=== PATIENT | male | born 1940 | race Caucasian/White ===

== ENCOUNTER → 2016-05-19 | Outpatient (CLI) | payer OTHER, BC ==
[~2016-05-19] VITALS: Ht 175.3 cm; Wt 85.3 kg
[~2016-05-19] MED LIST: CAFERGOT TABLE1 EACH; CELEBREX 200 M200 MG PO; CORGARD 80MG TA80 M1 PO; FISH OIL 1,001000 M1 PO; HYDROCODON-ACE1 EAC7 PO; LORTAB 5 MG/5001 TA1 PO; MELATONIN5 M1 PO; NADOLOL PO; NORCO 5-325 TA1 EACH PO; NORCO 7.5-3251 EACH PO; NORTRIPTYLINE H50 M3 PO; NORTRIPTYLINE HCL; PRILOSEC 20 MG20 MG PO; STEROID CREAM; TRAMADOL 50 MG50 MG PO; TRAZODONE 150150 M1 PO; VALIUM5 MG PO; VITAMIN D2400 UNIT PO; VITAMIN E400 UNIT PO; WELLBUTRIN 100100 MG PO
--- NOTE | ~2016-05-19 | HPC ---
[facility] [address] [place] [address] PAIN MANAGEMENT CONSULTATION Name: ABUNDIO DAY [facility] #[id number] Admission: 05/19/16 Attend Phys: rEic Haas DO Discharge: Date of : 42 Report #: [id number] THIS REPORT FOR: //name// CC: Jamarcus Haas The patient is a very pleasant 75-year-old gentleman seen in consultation at the request of Dr. Carlos for evaluation of pain, neck, right shoulder and neck. 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 Returns to the pain clinic today noting that symptoms began about 6 months ago, right shoulder, posterior occiput and neck. He has chronic history of migraine headaches, that generally have been well controlled with nadolol and nortriptyline. Notes the current symptoms are continuous and sharp, rates it anywhere from 7-10 on a 0-10 visual analog scale, seem to be exacerbated with head position, specifically turning to the right. Some relief with repositioning his head and lying recumbent. He denies specific myelopathic symptoms. REVIEW OF SYSTEMS: Complete review of systems attached to chart and gone over with the patient. A 75-year-old gentleman, , does not smoke or drink alcohol to excess. History of some chronic renal insufficiency, has elevated creatinine contraindicating use of nonsteroidal anti-inflammatory medication. 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 Two back surgeries in 2004 and 2008, culminating in a fusion. Chronic migraines typically well controlled with nadolol and nortriptyline. 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 Pain impact score averages about 24/70. CURRENT MEDICATIONS: Include bupropion, diazepam, melatonin, nadolol, nortriptyline, omeprazole, tramadol, trazodone. PHYSICAL EXAMINATION: GENERAL: Reveals a 5 feet 9 inches, 180 pounds gentleman, BMI is 27.8 kilograms per meter squared. VITAL SIGNS: Blood pressure is 103/74, pulse wnl and respirations are 18. NEUROLOGIC: Cranial nerves 2-12 are grossly intact. HEENT: Pupils equal and reactive to light and accommodation. Extraocular muscles are intact. He has a little lateral gaze nystagmus. MUSCULOSKELETAL: Cervical range of motion shows positive Lhermitte. Pain going into the right neck and shoulder. Deltoid strength is modestly diminished on the right compared to left. Hand grasp is symmetric. Upper extremity strength is otherwise preserved. Deep tendon reflexes are symmetric. Skin integument is intact. HEART: Regular rhythmical without murmur. LUNGS: Clear to auscultation. [facility] [address] [place] [address] PAIN MANAGEMENT CONSULTATION Name: SHAYABUNDIO W Room #: REG [facility]#: [id number] Admission: 05/19/16 Attend Phys: Eric Haas DO Discharge: Date of : 42 Report #: [id number] EXTREMITIES: Gait is tandem. DIAGNOSTIC STUDIES: MRI of the cervical spine from 02/13/2016 was reviewed with the patient, broad-based disk at C6-C7. Canals down to about 9 mm, moderate left greater than right neural foraminal stenosis, C5-C6 notes canal narrowed to 8 mm with bilateral neural foraminal narrowing. ASSESSMENT: Symptomatic cervical radiculopathy in a gentleman with history of component of cervical spondylosis and chronic migraine history. RECOMMENDATIONS: Discussion with the patient today about therapeutic option. Would like to move forward with cervical epidural injection under fluoroscopy today. If this does not afford adequate relief, we will move forward with C2-C3 cervical facet joint injection under fluoroscopy in consideration for medial branch dorsal rami diagnostic block and/or RFL. Thank you for allowing me to participate in the patient's care. I will keep you abreast of his progress. PROCEDURE: Cervical epidural steroid injection under fluoroscopy. PROCEDURE NOTE: After written and informed consent was obtained including risk of dural puncture, spinal cord trauma, paralysis and increased pain, the patient was taken to the fluoroscopy suite and placed in the prone position, with appropriate abdominal bolstering, neck was flexed, palms under the thighs. Skin was prepped with ChloraPrep. Sterile draping was applied. Skin wheal with 1% Xylocaine was raised. A 22-gauge 3-1/2 inch epidural Tuohy needle was placed via a midline approach at the C7-T1 interspace, advanced under biplanar fluoroscopy using continuous loss of resistance. With appropriate loss of resistance at the expected depth on lateral view, the glass loss of resistance syringe was disconnected. A low volume extension tubing was connected to the needle and a 5 mL syringe. Negative aspiration for cerebrospinal fluid or blood was noted. A 1 mL of Omnipaque was injected which showed spread within the epidural space on biplanar fluoroscopy. This was followed with 80 mg of triamcinolone plus 1 mL of 1.5% preservative Xylocaine. Needle was withdrawn to the interspinous ligament, 0.5 mL of Xylocaine was used to flush the needle. The needle was then completely withdrawn. The area was cleansed. Band-Aid was applied. The patient was allowed to move off the procedure table and ambulated to the recovery room, monitored for an appropriate period of time, discharged in good and stable condition. <ELECTRONICALLY SIGNED> By: Eric Haas DO 05/21/16 [id number] Eric Haas DO /nt
[2016-05-19 12:59] VITALS: BP 103/74
== END | disposition home or self-care (01) ==
LOC: PAIN 07:40
DX: M47.892 Other spondylosis, cervical region (principal); G43.909 Migraine, unspecified, not intractable, without status migrainosus

== ENCOUNTER → 2016-07-11 | Outpatient (CLI) | payer OTHER, BC ==
[~2016-07-11] VITALS: Ht 177.8 cm; Wt 85.4 kg
[~2016-07-11] MED LIST changes: +RIZATRIPTAN10 MG PO
--- NOTE | ~2016-07-11 | HPC ---
[facility] [address] [employer] [place] [address] PAIN MANAGEMENT CONSULTATION Name: ABUNDIO DAY Room #: REG [facility] Satya.#: [id number] Admission: 07/11/16 Attend Phys: Eric Haas DO Discharge: Date of : 41 Report #: [id number] THIS REPORT FOR: //name// CC: Jamarcus Haas The patient is a 75-year-old gentleman, seen in consultation on 05/19/2016, diagnosed with symptomatic cervical radiculopathy, component of cervical spondylosis, given a cervical epidural injection at that time with incremental improvement of baseline pain, the patient notes 50% improvement, but primary pain is in the right neck and posterior occiput. PHYSICAL EXAMINATION: Today, again generally unchanged from last visit. A 75-year-old gentleman, BMI is 27 kg/m2. Vital signs are stable as noted in the EMR. Tender over the cervical facets superior aspect, tenderness over the posterior occiput, cervical range of motion is modestly limited. ASSESSMENT: 1. Symptomatic cervical radiculopathy, radicular symptoms have generally improved epidural injection. 2. Cervical spondylosis by clinical exam today, migraine headaches by history. 3. Symptomatic cervical spondylosis. RECOMMENDATION: 1. Continue range of motion of cervical spine and upper extremities. 2. Continue current medications, tramadol as needed for pain, trazodone at bedtime along with nortriptyline for migraine prophylaxis. 3. Cervical facet injections under fluoroscopy, right C2-C3, C3-C4, C4-C5 today. Follow up in 3-4 weeks for reevaluation and consideration for medial branch dorsal rami diagnostic block and consideration of neurolysis if indicated. PROCEDURE NOTE: Right cervical facets under fluoroscopy times 3. Fluoroscopy time was under 15 seconds. PROCEDURE: After written informed consent was obtained, the patient was taken to the fluoroscopy suite and placed in prone position. After sterile prep and drape, skin wheal with Xylocaine was raised times 3. 26-gauge stylet needles were placed to contact posterior aspect of the right C2-C3, C3-C4, and C4-C5 facet joints in the middle of mid lateral mass. AP and lateral projections showed good needle placement approaching the posterior aspect of each joint. Negative aspiration was accomplished. Approximately 3 mg of Decadron plus 1 mL of 0.5% preservative-free bupivacaine was injected at each needle. All three needles were removed, the area was cleansed, Band-Aids applied. The patient was monitored for an appropriate period of time, discharged in good and stable condition, noting dramatic improvement of his baseline pain, in fact noted pain was absent on discharge. We will have him continue to watch pain score over [address] [address] PAIN MANAGEMENT CONSULTATION Name: ABUNDIO DAY Room #: REG [facility]#: [id number] Admission: 07/11/16 Attend Phys: Eric Haas DO Discharge: Date of : 42 Report #: [id number] the next several hours and follow up in several weeks to see if there is a secondary improvement with the steroid over the next 48-72 hours. By: [id number] Eric Haas DO /nt
[2016-07-11 14:13] VITALS: BP 105/64
== END ==
LOC: PAIN 06-02 10:53
DX: M47.22 Other spondylosis with radiculopathy, cervical region (principal); F10.21 Alcohol dependence, in remission